=== PATIENT | female | born 1965 | race Caucasian/White ===

== ENCOUNTER → 2023-11-30 09:05 | Outpatient (REF) | payer OTHER, SELFPAY | LOC: RAD 09:05 | PROVIDERS: ATTENDING PHYSICIAN Nurse Practitioner Primary Care | DX: M54.50 Low back pain, unspecified (principal); M47.816 Spondylosis without myelopathy or radiculopathy, lumbar region; M25.552 Pain in left hip; M54.16 Radiculopathy, lumbar region | CPT/HCPCS: 72110; 73502 ==

== ENCOUNTER → 2024-02-16 10:44 | Outpatient (REF) | payer OTHER, SELFPAY | LOC: MRI 3T 10:44 | PROVIDERS: ATTENDING PHYSICIAN Nurse Practitioner Primary Care | DX: M25.552 Pain in left hip (principal); M54.50 Low back pain, unspecified; M47.816 Spondylosis without myelopathy or radiculopathy, lumbar region; M54.16 Radiculopathy, lumbar region | CPT/HCPCS: 72148; 73721 ==

== ENCOUNTER → 2025-07-07 06:57 | Outpatient (REF) | payer BC, SELFPAY | LOC: RAD 06:57 | PROVIDERS: ATTENDING PHYSICIAN Nurse Practitioner Primary Care | DX: R19.01 Right upper quadrant abdominal swelling, mass and lump (principal); E78.2 Mixed hyperlipidemia; I65.23 Occlusion and stenosis of bilateral carotid arteries | CPT/HCPCS: 76700; 93880 ==